=== PATIENT | female | born 1945 | race Caucasian/White ===

== ENCOUNTER 2023-11-14 10:11 | Emergency (ER) | payer OTHER ==
[~2023-11-14] VITALS: Ht 162.6 cm; Wt 88.0 kg
[2023-11-14 10:18] VITALS: BP_SYST 118; PULSE 99; RESP 18; TEMP 96.5; O2SAT 97
[2023-11-14] MEDS ORDERED: ACET-2634 PO (12:59)
[2023-11-14 13:25] VITALS: BP_SYST 118; PULSE 99; RESP 18; TEMP 96.5; O2SAT 97
== END 2023-11-14 13:24 | disposition home or self-care (01) ==
LOC: SED 10:11
DX: M79.18 Myalgia, other site (principal); Z79.899 Other long term (current) drug therapy
CPT/HCPCS: 71045; 99284